=== PATIENT | male | born 1985 | race African-American/Black ===

== ENCOUNTER 2021-08-04 16:51 | Emergency (ER) | payer MEDICARE, MEDICAID ==
[~2021-08-04] VITALS: Ht 188 cm; Wt 83.9 kg
[2021-08-04 17:06] VITALS: BP 165/99
== END 2021-08-04 23:52 | disposition left against medical advice (07) ==
LOC: ER 16:51
DX: S21.109D Unspecified open wound of unspecified front wall of thorax without penetration into thoracic cavity, subsequent encounter (principal); Z53.21 Procedure and treatment not carried out due to patient leaving prior to being seen by health care provider; X58.XXXD Exposure to other specified factors, subsequent encounter

== ENCOUNTER 2022-08-28 22:49 | Emergency (ER) | payer MEDICARE, MEDICAID ==
[~2022-08-28] VITALS: Ht 188 cm; Wt 84.1 kg
[2022-08-28] MEDS ORDERED: ALBUTEROL SULF 2.5 MG/0.5ML(0.5%) NEB SOLN NEB ONE (23:15)
[2022-08-29 02:09] LABS: Albumin 3.5 g/dL (3.4-5.0); Calcium 8.9 mg/dL (8.5-10.1); Potassium 4.2 mmol/L (3.5-5.1)
[2022-08-29 02:11] LABS: BUN/Creatinine Ratio 11.9
[2022-08-29 02:12] LABS: Basophils # (auto) 0.1 10 ^3/uL (0-0.2); Hemoglobin 12.5 g/dL (13.5-17.5); INR 0.91 (0.9-1.15); Lymphocytes # (auto) 2.6 10 ^3/uL (0.4-5.4); Monocytes # (auto) 0.6 10 ^3/uL (0-1.3)
[2022-08-29 02:14] LABS: Basophils % (auto) 1.1 % (0.0-2.0); Bilirubin, Total 0.4 mg/dL (0.2-1.0); Eosinophils # (auto) 0.1 10 ^3/uL (0-0.8); Eosinophils % (auto) 2.3 % (0.0-7.0); Lymphocytes % (auto) 43.7 % (10.0-50.0); Mean Corpuscular Hemoglobin 26.4 pg (28.0-32.0); Mean Corpuscular Volume 80.1 fL (80.0-100.0); Monocytes % (auto) 9.8 % (0.0-12.0); Neutrophils # (auto) 2.6 10 ^3/uL (1.6-8.6); Neutrophils % (auto) 43.1 % (37.0-80.0); Red Blood Cells 4.75 10^6/uL (4.5-5.90); Red Cell Distribution Width 14.8 % (11.8-14.3); Total Protein 7.5 g/dL (6.4-8.2); White Blood Cell 5.9 10^3/uL (4.4-10.8)
[2022-08-29] MEDS ORDERED: ALBU108A5 IN (02:40)
[2022-08-29 03:10] VITALS: BP 137/86
== END 2022-08-29 03:24 | disposition home or self-care (01) ==
LOC: ER 22:51
DX: J06.9 Acute upper respiratory infection, unspecified (principal); B97.89 Other viral agents as the cause of diseases classified elsewhere; Z20.822 Contact with and (suspected) exposure to COVID-19
CPT/HCPCS: 36415; 71046; 80053; 83880; 84484; 85025; 85610; 85730; 87426; 93005; 94640

== ENCOUNTER 2023-09-20 18:16 | Inpatient (IN) | payer MEDICAID ==
[~2023-09-20] VITALS: Ht 188 cm; Wt 98.1 kg
[~2023-09-20 18:16] MED LIST: ALBU108A5 IN
[2023-09-20] MEDS ORDERED: SODIUM CHLORIDE 0.9% 1,000 ML IVB ONE (20:45)
[2023-09-20] MEDS ORDERED: HYDROcodone-ACET 10/325MG TAB PO ONE (20:45)
[2023-09-20] MEDS ORDERED: VANCOMYCIN PER PHARMACY 0 MG IV SCH (21:45)
[2023-09-20] MEDS ORDERED: TETANUS-DIPTH-ACEL PERTUSSIS 0.5ML SYR Tdap IM ONE (21:45)
[2023-09-20] MEDS ORDERED: MUPIROCIN 2% OINT 15gm or 22gm TOP ONE (21:45)
[2023-09-20] MEDS ORDERED: METOCLOPRAMIDE HCL 10 MG TAB PO ONE (21:45)
[2023-09-20] MEDS ORDERED: SODIUM CHLORIDE 0.9% 2,500 ML IV ONE (21:45)
[2023-09-20] MEDS ORDERED: HYDROmorphone HCL 2 MG/ML VL/or syr IM ONE (21:45)
[2023-09-20] MEDS ORDERED: PIPERACILLIN-TAZOB 3.375GM 100 ML IV ONE (22:00)
[2023-09-20] MEDS ORDERED: VANCOMYCIN 1GM/200ML 250 ML IV ONE (22:00)
[2023-09-20 22:05] LABS: Basophils # (auto) 0.1 10 ^3/uL (0-0.2); Eosinophils # (auto) 0.2 10 ^3/uL (0-0.8); Monocytes # (auto) 1.1 10 ^3/uL (0-1.3)
[2023-09-20 22:07] LABS: Basophils % (auto) 0.5 % (0.0-2.0); Hematocrit 33.8 % (41.0-53.0); Hemoglobin 10.7 g/dL (13.5-17.5); Lymphocytes # (auto) 1.8 10 ^3/uL (0.4-5.4); Lymphocytes % (auto) 15.2 % (10.0-50.0); Mean Corpuscular Hemoglobin 25.4 pg (28.0-32.0); Mean Corpuscular Hgb Conc. 31.6 g/dL (32.0-36.0); Mean Corpuscular Volume 80.4 fL (80.0-100.0); Monocytes % (auto) 9.5 % (0.0-12.0); Neutrophils # (auto) 8.7 10 ^3/uL (1.6-8.6); Neutrophils % (auto) 72.8 % (37.0-80.0); Red Blood Cells 4.21 10^6/uL (4.5-5.90); Red Cell Distribution Width 14.5 % (11.8-14.3)
[2023-09-20 22:24] LABS: CRP High Sensitivity 3.94 mg/dL (<1.0)
[2023-09-20 22:35] LABS: Magnesium 1.9 mg/dL (1.6-2.6)
[2023-09-20 22:37] LABS: Erythrocyte Sedimentation Rate 79 mm/hr (0-20)
[2023-09-20 22:42] LABS: Alanine Aminotransferase 89 U/L (7-40); Albumin 4.3 g/dL (3.2-4.8); Alkaline Phosphatase 175 U/L (46-116); Anion Gap 6 (5-15); Aspartate Aminotransferase 37 U/L (13-40); BUN/Creatinine Ratio 12.4 (10.0-20.0); Bilirubin, Total 0.9 mg/dL (0.2-1.0); Blood Alcohol < 3.0 mg/dL (<10); Blood Urea Nitrogen 11 mg/dL (9-23); Calcium 8.9 mg/dL (8.7-10.4); Carbon Dioxide 28 mmol/L (20-30); Chloride 103 mmol/L (98-107); Glucose 135 mg/dL (74-106); Potassium 4.1 mmol/L (3.5-5.1); Sodium 137 mmol/L (136-145); Total Protein 7.6 g/dL (5.7-8.2)
[2023-09-20 22:50] LABS: INR 0.95 (0.9-1.15); Partial Thromboplastin Time 28.8 SEC (24.5-34.5)
[2023-09-21 02:00] VITALS: PULSE 104; RESP 25; O2SAT 96
[2023-09-21 02:23] LABS: Amphetamine Screen, Urine Pos (NEGATIVE); Barbiturate Scree,Urine Neg (NEGATIVE); Benzodiazephine Screen, Urine Neg (NEGATIVE); Cannabinoid Screen, Urine Neg (NEGATIVE); Cocaine Screen, Urine Neg (NEGATIVE); Opiate Scree,Urine Pos (NEGATIVE); Phencyclidine Screen, Urine Neg (NEGATIVE)
[2023-09-21 02:25] LABS: Urine Bacteria FEW /hpf (None Seen); Urine Blood Negative /uL (Negative); Urine Clarity Clear (Clear); Urine Color Yellow (Yellow); Urine Protein, UAD 1+ (Negative); Urine Specific Gravity 1.032 (1.001-1.035); Urine WBC 1 /hpf (0 - 3); Urine pH 6.5 (5.0-8.0)
[2023-09-21] MEDS ORDERED: IOHEXOL 300 MG/ML 100ML BOTTLE IJ ONE (03:06)
[2023-09-21] MEDS: ONDANSETRON HCL 4 MG/2 ML VIAL IV PRN ×3 (05:28→18:30)
[2023-09-21] MEDS: MORPHINE SULFATE INJ 2 MG/ml SYRG IV PRN ×3 (05:30→18:30)
[2023-09-21] MEDS ORDERED: hydrALAZINE HCL 20 MG/ML VL IV PRN (05:30)
[2023-09-21] MEDS ORDERED: ACETAMINOPHEN 325 MG TAB PO PRN (05:30)
[2023-09-21] MEDS ORDERED: VANCOMYCIN PER PHARMACY 0 MG IV SCH (05:30)
[2023-09-21] MEDS ORDERED: METOPROLOL TARTRATE 25 MG TAB PO ONE (06:00)
[2023-09-21] MEDS: METOPROLOL TARTRATE 25 MG TAB PO SCH ×2 (06:15→22:19)
[2023-09-21] MEDS ORDERED: ENOXAPARIN SOD 80 MG/0.8ML SYRINGE SC ONE (06:30)
[2023-09-21 08:21] VITALS: PULSE 122; RESP 20; O2SAT 94
[2023-09-21] MEDS ORDERED: hydroCHLOROthiazide 25 MG TAB PO SCH (11:00)
[2023-09-21] MEDS: VANCOMYCIN 1GM/200ML 250 ML IV SCH ×2 (11:09→17:42)
[2023-09-21] MEDS ORDERED: ENOXAPARIN SOD 40 MG/0.4 ML SYRINGE SC SCH (11:16)
[2023-09-21] MEDS: PIPERACILLIN-TAZOB 3.375GM 100 ML IV SCH ×2 (13:16→19:03)
[2023-09-21] MEDS: LISINOPRIL 20 MG TAB PO SCH ×2 (13:16→22:19)
[2023-09-21 19:25] VITALS: PULSE 110; RESP 29; O2SAT 97
[2023-09-21 22:03] VITALS: BP 147/88; PULSE 119; RESP 18; TEMP 98.6; O2SAT 96
[2023-09-21] MEDS: HYDROcodone-ACET 5/325MG TAB PO PRN (22:11)
[2023-09-22] VITALS (8 sets, daily range): BP systolic 114–147; BP diastolic 75–93; PULSE 70–110; RESP 17–21; TEMP 97.5–98.7; O2SAT 94–97
[2023-09-22] MEDS: VANCOMYCIN 1GM/200ML 250 ML IV SCH ×4 (02:15→22:16)
[2023-09-22 05:28] LABS: Basophils # (auto) 0.1 10 ^3/uL (0-0.2); Basophils % (auto) 0.5 % (0.0-2.0); Eosinophils # (auto) 0.2 10 ^3/uL (0-0.8); Eosinophils % (auto) 1.5 % (0.0-7.0); Monocytes # (auto) 1.3 10 ^3/uL (0-1.3); Neutrophils # (auto) 6.3 10 ^3/uL (1.6-8.6)
[2023-09-22] MEDS: PIPERACILLIN-TAZOB 3.375GM 100 ML IV SCH (05:28)
[2023-09-22 05:32] LABS: Hematocrit 29.9 % (41.0-53.0); Hemoglobin 9.8 g/dL (13.5-17.5); Lymphocytes # (auto) 2.5 10 ^3/uL (0.4-5.4); Lymphocytes % (auto) 24.3 % (10.0-50.0); Mean Corpuscular Hemoglobin 26.1 pg (28.0-32.0); Mean Corpuscular Hgb Conc. 32.7 g/dL (32.0-36.0); Mean Corpuscular Volume 79.6 fL (80.0-100.0); Monocytes % (auto) 12.5 % (0.0-12.0); Neutrophils % (auto) 61.2 % (37.0-80.0); Red Blood Cells 3.76 10^6/uL (4.5-5.90); White Blood Cell 10.3 10^3/uL (4.4-10.8)
[2023-09-22 05:50] LABS: Anion Gap 7 (5-15); Carbon Dioxide 26 mmol/L (20-30); Chloride 103 mmol/L (98-107); Sodium 136 mmol/L (136-145)
[2023-09-22 05:52] LABS: Calcium 8.4 mg/dL (8.5-10.1)
[2023-09-22 05:54] LABS: BUN/Creatinine Ratio 13.7 (10.0-20.0); Blood Urea Nitrogen 13 mg/dL (9-23)
[2023-09-22 06:11] LABS: Glucose 143 mg/dL (74-106)
[2023-09-22] MEDS: ENOXAPARIN SOD 40 MG/0.4 ML SYRINGE SC SCH (10:55)
[2023-09-22] MEDS: hydroCHLOROthiazide 25 MG TAB PO SCH (10:56)
[2023-09-22] MEDS: METOPROLOL TARTRATE 25 MG TAB PO SCH ×2 (10:56→22:17)
[2023-09-22] MEDS: LISINOPRIL 20 MG TAB PO SCH ×2 (10:57→22:11)
[2023-09-22] MEDS: MORPHINE SULFATE INJ 2 MG/ml SYRG IV PRN (10:58)
[2023-09-22] MEDS: metroNIDAZOLE 500 MG TAB PO SCH ×2 (17:33→22:16)
[2023-09-23] VITALS (7 sets, daily range): BP systolic 121–159; BP diastolic 77–95; PULSE 79–107; RESP 18–20; TEMP 98–98.5; O2SAT 95–98
[2023-09-23] MEDS: MORPHINE SULFATE INJ 2 MG/ml SYRG IV PRN ×4 (02:55→21:32)
[2023-09-23 02:59] LABS: Basophils # (auto) 0.1 10 ^3/uL (0-0.2); Basophils % (auto) 0.8 % (0.0-2.0); Eosinophils # (auto) 0.3 10 ^3/uL (0-0.8); Hemoglobin 10.3 g/dL (13.5-17.5); Nucleated Red Blood Cells % 0.1 %
[2023-09-23 03:01] LABS: Eosinophils % (auto) 3.3 % (0.0-7.0); Hematocrit 31.8 % (41.0-53.0); Lymphocytes # (auto) 2.3 10 ^3/uL (0.4-5.4); Lymphocytes % (auto) 24.4 % (10.0-50.0); Mean Corpuscular Hemoglobin 26.1 pg (28.0-32.0); Mean Corpuscular Hgb Conc. 32.4 g/dL (32.0-36.0); Mean Corpuscular Volume 80.5 fL (80.0-100.0); Monocytes # (auto) 1.3 10 ^3/uL (0-1.3); Monocytes % (auto) 13.6 % (0.0-12.0); Neutrophils # (auto) 5.6 10 ^3/uL (1.6-8.6); Neutrophils % (auto) 57.9 % (37.0-80.0); Red Blood Cells 3.95 10^6/uL (4.5-5.90); Red Cell Distribution Width 14.4 % (11.8-14.3); White Blood Cell 9.6 10^3/uL (4.4-10.8)
[2023-09-23 03:12] LABS: Chloride 104 mmol/L (98-107); Sodium 139 mmol/L (136-145)
[2023-09-23 03:13] LABS: Anion Gap 7 (5-15); Calcium 8.3 mg/dL (8.7-10.4); Carbon Dioxide 28 mmol/L (20-30)
[2023-09-23 03:18] LABS: Blood Urea Nitrogen 13 mg/dL (9-23); Glucose 165 mg/dL (74-106)
[2023-09-23] MEDS: VANCOMYCIN 1GM/200ML 250 ML IV SCH ×3 (04:00→19:00)
[2023-09-23] MEDS: metroNIDAZOLE 500 MG TAB PO SCH ×3 (06:00→21:27)
[2023-09-23] MEDS: cefTRIAXone 1GM/50ML D5W 50 ML IV SCH (08:57)
[2023-09-23] MEDS: hydroCHLOROthiazide 25 MG TAB PO SCH (08:58)
[2023-09-23] MEDS: ENOXAPARIN SOD 40 MG/0.4 ML SYRINGE SC SCH (08:58)
[2023-09-23] MEDS: METOPROLOL TARTRATE 25 MG TAB PO SCH ×2 (08:59→21:28)
[2023-09-23] MEDS: LISINOPRIL 20 MG TAB PO SCH ×2 (08:59→21:28)
[2023-09-23] MEDS: CLINDAMYCIN HCL 150 MG CAP PO SCH ×2 (15:27→21:27)
[2023-09-23] MEDS: HYDROcodone-ACET 5/325MG TAB PO PRN (17:27)
[2023-09-23 23:42] LABS: COVID19 ANTIGEN SOFIA FIA NEGATIVE (NEGATIVE)
[2023-09-24] MEDS: VANCOMYCIN 1GM/200ML 250 ML IV SCH (03:42)
[2023-09-24] MEDS: MORPHINE SULFATE INJ 2 MG/ml SYRG IV PRN ×3 (03:47→15:50)
[2023-09-24 05:00] VITALS: BP 136/86; PULSE 95; RESP 20; TEMP 98.3; O2SAT 96
[2023-09-24] MEDS: CLINDAMYCIN HCL 150 MG CAP PO SCH ×2 (05:52→13:32)
[2023-09-24] MEDS: metroNIDAZOLE 500 MG TAB PO SCH ×2 (05:52→13:32)
[2023-09-24] MEDS: HYDROcodone-ACET 5/325MG TAB PO PRN ×2 (05:52→19:53)
[2023-09-24 08:00] VITALS: PULSE 85
[2023-09-24 09:01] VITALS: BP 142/97; PULSE 83; RESP 16; TEMP 98; O2SAT 99
[2023-09-24] MEDS: ENOXAPARIN SOD 40 MG/0.4 ML SYRINGE SC SCH (09:11)
[2023-09-24] MEDS: METOPROLOL TARTRATE 25 MG TAB PO SCH (09:11)
[2023-09-24] MEDS: hydroCHLOROthiazide 25 MG TAB PO SCH (09:11)
[2023-09-24] MEDS: cefTRIAXone 1GM/50ML D5W 50 ML IV SCH (09:11)
[2023-09-24] MEDS: LISINOPRIL 20 MG TAB PO SCH (09:11)
[2023-09-24 13:00] VITALS: BP 142/93; PULSE 78; RESP 17; TEMP 98; O2SAT 96
[2023-09-24] MEDS ORDERED: VANCOMYCIN 1GM/200ML 250 ML IV SCH ×2 (14:00)
[2023-09-24 16:58] VITALS: BP 149/88; PULSE 89; RESP 17; TEMP 97.8; O2SAT 97
== END 2023-09-24 19:45 | DRG 342 ==
LOC: ER 18:16 → TELE 09-21 06:09 → TELE-CENTR 09-21 21:40
PROVIDERS: ADMIT Nurse Practitioner Family; ATTEND Nurse Practitioner Family
PROC: 05HB33Z Insertion of Infusion Device into Right Basilic Vein, Percutaneous Approach (ICD-10-PCS; principal; 2023-09-23)
PROC: B54MZZA Ultrasonography of Right Upper Extremity Veins, Guidance (ICD-10-PCS; 2023-09-23)
DX: S92.421A Displaced fracture of distal phalanx of right great toe, initial encounter for closed fracture (principal); L03.115 Cellulitis of right lower limb; I10 Essential (primary) hypertension; J44.9 Chronic obstructive pulmonary disease, unspecified; S90.821A Blister (nonthermal), right foot, initial encounter; Z20.822 Contact with and (suspected) exposure to COVID-19; W18.39XA Other fall on same level, initial encounter; Y93.89 Activity, other specified; Y92.89 Other specified places as the place of occurrence of the external cause; Y99.8 Other external cause status; L98.8 Other specified disorders of the skin and subcutaneous tissue
CPT/HCPCS: 36415; 71045; 73630; 73701; 78582; 80048; 80053; 80202; 80307; 80320; 81001; 82565; 83605; 83735; 85025; 85379; 85610; 85652; 85730; 86141; 87040; 87081; 87205; 87426; 93306; 93971; 96365; 96372; 97110; 97116; 97163; 97530; G0378; J0696; J2405; J2543